=== PATIENT | female | born 2000 | race Caucasian/White ===

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

== ENCOUNTER 2022-09-21 10:21 | Emergency (ER) | payer OTHER ==
[~2022-09-21] VITALS: Ht 152.4 cm; Wt 72.6 kg
[2022-09-21 10:42] VITALS: BP 154/64; PULSE 89; RESP 18; TEMP 97.6
--- NOTE | 2022-09-21 12:55 | NUR ---
Patient discharged with v/s stable. Written and verbal after care instructions given and explained. Patient verbalized understanding. Ambulatory with steady gait. All questions addressed prior to discharge. Advised to follow up with PMD.
== END 2022-09-21 12:55 | disposition home or self-care (01) ==
LOC: MED 10:21
DX: M79.5 Residual foreign body in soft tissue (principal); Z79.899 Other long term (current) drug therapy
CPT/HCPCS: 99281